=== PATIENT | male | born 1970 | race Caucasian/White ===

== ENCOUNTER 2022-09-11 13:59 | Emergency (ER) | payer OTHER ==
[~2022-09-11] VITALS: Ht 170.2 cm; Wt 71.2 kg
[~2022-09-11 13:59] MED LIST: KETO10TA2 PO; MOTRIN800 MG PO; ORPH100T PO; VASOTEC20 M1
[2022-09-11] MEDS ORDERED: HYDROCHLOROTHIA25 MG PO (15:06)
[2022-09-11] MEDS ORDERED: GLUMETZA500 MG PO (15:06)
[2022-09-11] MEDS ORDERED: NORVASC10 MG PO (15:07)
[2022-09-11] MEDS ORDERED: LISINOPRIL40 MG PO (15:07)
[2022-09-11] MEDS ORDERED: PEPCID AC20 MG PO (15:07)
[2022-09-11] MEDS ORDERED: METADONA PO (15:09)
[2022-09-11] MEDS ORDERED: NORFLEX100MG PO (19:26)
== END 2022-09-11 19:34 | disposition home or self-care (01) ==
LOC: ER 13:59
DX: M54.89 Other dorsalgia (principal); E11.9 Type 2 diabetes mellitus without complications; Z79.84 Long term (current) use of oral hypoglycemic drugs; I10 Essential (primary) hypertension; Z88.8 Allergy status to other drugs, medicaments and biological substances

== ENCOUNTER 2024-11-26 07:02 | Emergency (ER) | payer OTHER ==
[~2024-11-26] VITALS: Ht 170.2 cm; Wt 70.3 kg
[~2024-11-26 07:02] MED LIST changes: +GLUMETZA500 MG PO; +HYDROCHLOROTHIA25 MG PO; +LISINOPRIL40 MG PO; +METADONA PO; +NORFLEX100MG PO; +NORVASC10 MG PO; +PEPCID AC20 MG PO
[2024-11-26 08:54] LABS: HEMATOCRIT 42.6 % (39.0-48.0); HEMOGLOBIN 14.8 g/dL (13-16.00); MEAN CELL VOLUME 88.9 fL (80.0-100.00); MEAN CORPUSCULAR HEMOGLOBIN 30.8 pg (27.00-32.0); MEAN CORPUSCULAR HGB CONC 34.7 g/dl (32.0-36.0); PLATELET COUNT 191 K/uL (150-450); RED BLOOD COUNT 4.79 M/uL (4.00-6.00); RED CELL DISTRIBUTION WIDTH 12.7 % (11.5-14.5)
[2024-11-26 09:18] LABS: ALBUMIN 4.3 gm/dL (3.4-5.0); BILIRUBIN TOTAL 1.21 mg/dL (0.3-1.2); CALCIUM 9.2 mg/dL (8.5-10.1); CREATININE SERUM 1.04 mg/dL (0.70-1.30); GFR 74.14; GLOBULINA 3.5 G/DL (2.4-3.5); POTASSIUM 3.55 mEq/L (3.5-5.1); TOTAL PROTEIN 7.8 gm/dL (6.4-8.2)
[2024-11-26 09:44] LABS: PH,URINE 5.5 (5.0-8.0); URINE APPEARANCE Clear; URINE BILIRRUBIN Negative (NEGATIVE); URINE BLOOD Moderate; URINE COLOR Yellow; URINE KETONE Negative (NEGATIVE); URINE LEUKOCYTE Negative; URINE NITRATE Negative; URINE PROTEIN Trace (NEGATIVE); URINE UROBILINOGEN 0.2 E.U./dl
[2024-11-26 09:46] LABS: URINE WBC 14.8 uL (0.0-23.2)
[2024-11-26 09:49] LABS: URINE CAST 0.58 uL (0.0-1.40); URINE GLUCOSE 250 MG/DL (NEGATIVE)
[2024-11-26] MEDS ORDERED: ORPHENADRINE CITRATE 30 MG/ML AMPUL IM ONE (12:00)
[2024-11-26] MEDS ORDERED: KETOROLAC TROMETHAMINE 60 MG VIAL IM ONE ×2 (12:00→12:21)
[2024-11-26] MEDS ORDERED: IBU600 MG PO (12:04)
[2024-11-26] MEDS ORDERED: ORPHENADRINE CITRATE 30 MG/ML AMPUL ONE (12:21)
== END 2024-11-26 12:36 | disposition home or self-care (01) ==
LOC: ER 07:04
PROVIDERS: Preventive Medicine Public Health & General Preventive Medicine
DX: M54.50 Low back pain, unspecified (principal); I10 Essential (primary) hypertension; E11.9 Type 2 diabetes mellitus without complications; Z79.84 Long term (current) use of oral hypoglycemic drugs; Z88.8 Allergy status to other drugs, medicaments and biological substances

== ENCOUNTER 2025-05-02 20:27 | Emergency (ER) | payer OTHER ==
[~2025-05-02] VITALS: Ht 170.2 cm; Wt 68.0 kg
[~2025-05-02 20:27] MED LIST changes: +IBU600 MG PO
[2025-05-02 20:35] VITALS: BP 123/70; O2SAT 100
[2025-05-02] MEDS ORDERED: CHILDREN'S ASPI81 MG PO (20:39)
[2025-05-02] MEDS ORDERED: KETOROLAC TROMETHAMINE 15 MG VIAL IM STA (21:04)
[2025-05-02] MEDS ORDERED: KETOROLAC TROMETHAMINE 30 MG VIAL ONE (21:18)
[2025-05-02 21:48] LABS: BASO % 1.0 % (0.1-1.2); EOS # 0.31 (0.04-0.54); EOS % 5.4 % (0.7-7.0); LYMPH # 1.89 (1.18-3.74); LYMPH % 32.9 % (19.3-53.1); MEAN PLATELET VOLUME 9.60 fl (9.4-12.4); MONO # 0.56 (0.24-0.82); MONO % 9.8 % (4.7-12.5); NEUT # 2.90 (1.56-6.13); NEUT % 50.6 % (34.0-71.1); RED CELL DISTRIBUTION WIDTH 11.7 % (11.6-14.4)
[2025-05-02] MEDS ORDERED: DICLOFENAC SODI75 MG PO (23:00)
== END 2025-05-02 23:03 | disposition home or self-care (01) ==
LOC: ER 20:29
PROVIDERS: General Practice
DX: M25.562 Pain in left knee (principal); Z88.8 Allergy status to other drugs, medicaments and biological substances; I10 Essential (primary) hypertension; M19.90 Unspecified osteoarthritis, unspecified site; E11.9 Type 2 diabetes mellitus without complications; Z79.84 Long term (current) use of oral hypoglycemic drugs; M51.27 Other intervertebral disc displacement, lumbosacral region